=== PATIENT | male | born 1955 | race Asian ===

== ENCOUNTER 2020-11-01 09:42 | Inpatient (IN) | payer OTHER, SELFPAY ==
[~2020-11-01] VITALS: Ht 170.2 cm; Wt 72.6 kg
[2020-11-01 09:46] VITALS: BP 139/62
[2020-11-01] MEDS ORDERED: cefTRIAXone 1,000 MG in DEXT 5% MINI-BAG PLUS 50 ML IV ONE (10:00)
[2020-11-01] MEDS ORDERED: NACL 0.9% 1,000 ML IV SCH (10:00)
--- NOTE | 2020-11-01 10:00 | NUR ---
PT W/C ASSISTED TO BED 4.
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
--- NOTE | 2020-11-01 10:32 | NUR ---
MD LOPEZ AT BEDSIDE EVALUATING PT.
[2020-11-01 10:40] LABS: BASOPHILS % (AUTO) 0.5 % (0.0-2.0); EOSINOPHILS # (AUTO) 0.1 K/uL (0-0.4); HEMATOCRIT 37.2 % (36-52); HEMOGLOBIN 12.2 g/dL (12.0-18.0); LYMPHOCYTES # (AUTO) 1.6 K/uL (2.0-11.5); LYMPHOCYTES % (AUTO) 29.3 % (20.5-51.1); MEAN CORPUSCULAR HEMOGLOBIN 30 pg (27-31); MEAN CORPUSCULAR HGB CONC 33 g/dL (33-37); MEAN CORPUSCULAR VOLUME 92.1 fL (80-94); MONOCYTES # (AUTO) 0.5 K/uL (0.8-1.0); MONOCYTES % (AUTO) 9.2 % (1.7-9.3); NEUTROPHILS # (AUTO) 3.3 K/uL (1.8-7.7); PLATELET COUNT (AUTO) 209 K/uL (140-450); RED BLOOD CELL COUNT(AUTO) 4.04 MIL/uL (4.20-6.10); RED CELL DISTRIBUTION WIDTH 13.9 % (11.6-13.7); WHITE BLOOD COUNT (AUTO) 5.6 K/uL (4.8-10.8)
--- NOTE | 2020-11-01 10:40 | NUR ---
RAD AT BEDSIDE
[2020-11-01 10:54] LABS: ALBUMIN 3.6 g/dL (3.4-5.0); ANION GAP 10.6 (8-16); CARBON DIOXIDE 28.4 mmol/L (21-32); CREATININE 0.9 mg/dL (0.6-1.3); TOTAL BILIRUBIN 0.8 mg/dL (0.0-1.0)
--- NOTE | 2020-11-01 11:13 | NUR ---
FLACA AND INFLUENZA SAMPLES COLLECTED AND WALKED OVER TO LAB
[2020-11-01] MEDS ORDERED: cefTRIAXone 1,000 MG VIAL ONE (11:26)
--- NOTE | 2020-11-01 11:50 | NUR ---
PATIENT STRAIGHT CATH FOR URINE COLLECTION.
--- NOTE | 2020-11-01 12:00 | NUR ---
PATIENT RESTING IN BED, VSS, RR EVEN AND UNLABORED, SPOUSE AT BEDSIDE.
[2020-11-01 12:12] LABS: APPEARANCE,URINE CLEAR (CLEAR); BILIRUBIN,URINE NEGATIVE (NEGATIVE); BLOOD, URINE NEGATIVE (NEGATIVE); COLOR,URINE YELLOW (YELLOW); LEUKOCYTE ESTERASE ,URINE NEGATIVE (NEGATIVE); NITRITE, URINE NEGATIVE (NEGATIVE); UGLUCOSE NEGATIVE (NEGATIVE)
[2020-11-01] MEDS ORDERED: GABA300C PO (12:33)
[2020-11-01] MEDS ORDERED: METF-988 PO (12:33)
[2020-11-01] MEDS ORDERED: ASPI1CPM8 PO (12:33)
[2020-11-01] MEDS ORDERED: SIMV20TA1 PO (12:33)
[2020-11-01] MEDS ORDERED: LOSA100T1 PO (12:33)
[2020-11-01] MEDS ORDERED: TAMS0.4C96 PO (12:33)
[2020-11-01] MEDS ORDERED: ASPI-1822 PO (12:33)
[2020-11-01] MEDS ORDERED: MIRA50TE PO (12:33)
[2020-11-01] MEDS ORDERED: PRON INH (12:33)
[2020-11-01] MEDS ORDERED: FLUO40CA6 PO (12:33)
[2020-11-01] MEDS ORDERED: ALPR0.252 PO (12:33)
--- NOTE | 2020-11-01 12:38 | NUR ---
ACCUCHECK 83, PATIENT GIVEN SNACK.
--- NOTE | 2020-11-01 13:20 | NUR ---
PATIENT IN RESTING IN BED, RR EVEN AND UNLABORED, AT BEDSIDE.
[2020-11-01] MEDS ORDERED: ACETAMINOPHEN 325 MG TAB PO PRN (13:40)
[2020-11-01] MEDS ORDERED: POTASSIUM CHLORIDE 10 MEQ TABER PO PRN (13:40)
[2020-11-01] MEDS ORDERED: HYDROcodone/APAP 7.5/325 MG 1 TAB PO PRN (13:40)
[2020-11-01] MEDS ORDERED: ONDANSETRON 4 MG/2 ML VIAL IM/IVP PRN (13:40)
[2020-11-01] MEDS ORDERED: guaiFENesin DM 200/20 MG-10 ML 10 ML UDC PO PRN (13:40)
[2020-11-01 14:02] LABS: PROTHROMBIN TIME 9.9 secs (10.8-13.4)
[2020-11-01] MEDS: NACL 0.9% 1,000 ML IV SCH ×2 (14:09→23:40)
--- NOTE | 2020-11-01 14:09 | NUR ---
PATIENT REPOSITIONED FOR COMFORT, STARTED ON NS @100ML/HR.
[2020-11-01 14:16] LABS: FREE T4 (FREE THYROXINE) 0.94 ng/dL (0.76-1.46); PHOSPHORUS 2.7 mg/dL (2.5-4.9); THYROID STIMULATING HORMONE 2.16 uIU/mL (0.34-3.74)
--- NOTE | 2020-11-01 15:05 | NUR ---
NO LONGER AT BEDSIDE, STATES SHE IS GOING TO GO EAT.
--- NOTE | 2020-11-01 15:45 | NUR ---
PATIENT DEPENDANT CHANGED, PT CLEAN AND DRY.
--- NOTE | 2020-11-01 16:55 | NUR ---
PT PULLED OUT IV, PT CLEANED AND LINEN CHANGED. RETURNED TO BEDSIDE.
--- NOTE | 2020-11-01 17:37 | NUR ---
PATIENT RESTING IN BED, RR EVEN AND UNLABORED. AT BEDSIDE.
--- NOTE | 2020-11-01 19:00 | NUR ---
PTS AT BEDSIDE. DINNER TRAY PROVIDED. PER , PT NEEDS ASSISTANCE WITH FEEDING AND IS REQUESTING SOFT DIET. WILL CONTACT DR HILTON FOR DIET CHANGE
--- NOTE | 2020-11-01 19:15 | NUR ---
RECEIVED REPORT FROM GOPI MAHONEY. TRANSFER OF CARE ATY THIS TIME
--- NOTE | 2020-11-01 20:00 | NUR ---
Patient will be admitted to care of DR. HILTON. Admited to [facility]. Will go to room 123A. Belongings list completed. Report to ROGER NGUYỄN.
[2020-11-01] MEDS: DOCUSATE SODIUM 100 MG GELCAP PO PRN (21:01)
[2020-11-01] MEDS: ZOLPIDEM 5 MG TAB PO PRN (21:01)
[2020-11-01 21:03] VITALS: BP 140/75
--- NOTE | 2020-11-01 21:05 | NUR ---
THIS IS AN ADMISSION OF A 65 YEAR OLD MALE PATIENT UNDER THE CARE OF DOCTOR MATT HILTON MD. HAS HISTORY OF CVA SUBSEQUENT RIGHT SIDE WEAKNESS. PATIENT ALSO HAS HYPERLIPIDEMIA, GERD, ANXIETY, DEPRESSION, BENIGN PROSTATIC HYPERTROPHY, DIABETES MELLITUS, HYPERTENSION AND NEUROPATHY. THE PATIENT HAS BEEN ADMITTED FOR PNEUMONIA AND WEAKNESS. ROGER TOLEDO RN Addendum: 11/01/20 at 2206 by Agency GOPI NGUYỄN FATUMA HILTON, ALEXEY HILTON
--- NOTE | 2020-11-01 22:06 | NUR ---
SPOUSE REQUEST FOR DIET ORDER DUE TO PATIENT SWALLOW DIFFICULTY. ROGER TOLEDO RN
[2020-11-02 01:04] VITALS: BP 123/68
[2020-11-02 04:49] VITALS: BP_SYST 141; BP_SYST 146; BP_DIAS 62; BP_DIAS 64
[2020-11-02 06:03] LABS: BASOPHILS % (AUTO) 0.5 % (0.0-2.0); EOSINOPHILS # (AUTO) 0.1 K/uL (0-0.4); EOSINOPHILS % (AUTO) 1.4 % (0.0-4.0); HEMATOCRIT 36.8 % (36-52); HEMOGLOBIN 12.1 g/dL (12.0-18.0); LYMPHOCYTES # (AUTO) 2.3 K/uL (2.0-11.5); LYMPHOCYTES % (AUTO) 36.9 % (20.5-51.1); MEAN CORPUSCULAR HEMOGLOBIN 30 pg (27-31); MEAN CORPUSCULAR HGB CONC 33 g/dL (33-37); MEAN CORPUSCULAR VOLUME 91.6 fL (80-94); MONOCYTES # (AUTO) 0.5 K/uL (0.8-1.0); MONOCYTES % (AUTO) 7.4 % (1.7-9.3); NEUTROPHILS # (AUTO) 3.3 K/uL (1.8-7.7); NEUTROPHILS % (AUTO) 53.8 % (42.2-75.2); PLATELET COUNT (AUTO) 196 K/uL (140-450); RED BLOOD CELL COUNT(AUTO) 4.01 MIL/uL (4.20-6.10); RED CELL DISTRIBUTION WIDTH 13.9 % (11.6-13.7); WHITE BLOOD COUNT (AUTO) 6.2 K/uL (4.8-10.8)
[2020-11-02 06:27] LABS: CARBON DIOXIDE 26.8 mmol/L (21-32); CREATININE 0.7 mg/dL (0.6-1.3); POTASSIUM 3.8 mmol/L (3.5-5.1)
--- NOTE | 2020-11-02 07:30 | NUR ---
HANDOFF WITH GOPI AMEZCUA. ROGER TOLEDO RN
--- NOTE | 2020-11-02 07:32 | NUR ---
RECEIVED PATIENT REPORT FROM LOCKS TENDER NURSE FOR CONTINUITY OF CARE. PT IS AOX1. RESPIRATIONS EVEN AND UNLABORED. ON ROOM AIR AND NO DISTRESS NOTED. SKIN IS WARM, DRY, AND INTACT. IV SITE ON RH 24 G. INTACT AND PATENT. FLACC 0. PLAN OF CARE DISCUSSED. SAFETY PRECAUTIONS IN PLACE. WILL CONTINUE TO MONITOR.
--- NOTE | 2020-11-02 07:48 | NUR ---
PATIENT HAS BEEN SCREENED AND CATEGORIZED HIGH NUTRITION RISK. PATIENT WILL BE SEEN WITHIN 1-2 DAYS OF ADMISSION. 11/02/20-11/03/[address]
[2020-11-02 08:00] VITALS: BP 144/69
[2020-11-02 08:07] LABS: T4 (THYROXINE) 8.2 ug/dL (4.5-12.0)
--- NOTE | 2020-11-02 08:54 | NUR ---
PT. WITH LOW CARLOS SCALE AT RISK, CONTINUE TO FOLLOW PRESSURE INJURY PREVENTION INTERVENTIONS. -TURN AND REPOSITION PATIENT Q 2H -ASSESS AND MONITOR SKIN CONDITION DURING POSITION CHANGE -OFFLOAD BILATERAL HEELS BY PLACING PILLOWS UNDER CALVES AT ALL TIMES, UNLESS OTHERWISE CONTRAINDICATED -PRESSURE REDISTRIBUTION BY PLACING PILLOWS AND OFFLOADING SACRALCOCCYX -KEEP SKIN CLEAN AND DRY AT ALL TIMES.
[2020-11-02] MEDS: PANTOPRAZOLE 40 MG TABEC PO SCH (09:01)
--- NOTE | 2020-11-02 09:30 | NUR ---
SPEECH THERAPIST AT BEDSIDE ASSESSING PATIENT'S ABILITY TO SWALLOW.
--- NOTE | 2020-11-02 09:45 | NUR ---
ALL SCHEDULED MEDS GIVEN. PT IS STABLE. NO DISTRESS NOTED. WILL CONTINUE TO MONITOR.
[2020-11-02] MEDS: NACL 0.9% 1,000 ML IV SCH ×2 (09:48→19:55)
--- NOTE | 2020-11-02 09:49 | NUR ---
PT WAS SEEN FOR DYSPHAGIA. PT WAS ABLE TO SAFELY SWALLOW MS DIET WITH THIN LIQUID WITHOUT S/S OF ASPIRATION. RECOMMENDATION MS DIET WITH THIN LIQUID
--- NOTE | 2020-11-02 10:30 | NUR ---
PATIENT'S AT BEDSIDE. ENDORSED UPDATES REGARDING PATIENT CONDITION.
[2020-11-02] MEDS ORDERED: ALPRAZolam 0.25 MG TAB PO PRN (12:20)
[2020-11-02] MEDS ORDERED: ALBUTEROL 0.083% 2.5 MG/3 ML NEBU INH PRN (12:20)
--- NOTE | 2020-11-02 12:30 | NUR ---
CHECKED ON PATIENT. PATIENT IS ASLEEP. NOTED CHEST RISE AND FALL. NO DISTRESS NOTED. WILL CONTINUE TO MONITOR.
[2020-11-02] MEDS ORDERED: DEXTROSE 50% 50 ML SYR IVP PRN (12:50)
--- NOTE | 2020-11-02 14:08 | NUR ---
11/02/20 RD INITIAL ASSESSMENT COMPLETED PLEASE REFER TO NUTRITION ASSESSMENT UNDER CARE ACTIVITY FOR ESTIMATED NUTRITIONAL NEEDS. 1. RECOMMEND CCHO MECHANICAL SOFT DIET TOLERATED 2. RECOMMEND GLUCERNA BID FOR ADDITIONAL PROTEIN 3. PROVIDE SENIOR ECONOMIST WITH MEALS 4. RD TO FOLLOW-UP 5-7 DAYS, LOW RISK JAZMIN BAIN, LAUREEN
--- NOTE | 2020-11-02 14:16 | NUR ---
CHECKED ON PATIENT. PATIENT IS ASLEEP. NOTED CHEST RISE AND FALL. NO DISTRESS NOTED. WILL CONTINUE TO MONITOR.
[2020-11-02 16:00] VITALS: BP 122/70
--- NOTE | 2020-11-02 16:20 | NUR ---
CHECKED ON PATIENT. PATIENT IS ASLEEP. NOTED CHEST RISE AND FALL. NO DISTRESS NOTED. WILL CONTINUE TO MONITOR.
[2020-11-02] MEDS: BLOOD GLUCOSE MONITORING 1 DEV DEV FS SCH ×2 (17:30→20:05)
--- NOTE | 2020-11-02 17:30 | NUR ---
BLOOD GLUCOSE CHECK WAS 108. NO INSULIN COVERAGE NEEDED.
--- NOTE | 2020-11-02 19:30 | NUR ---
ENDORSED TO CITY PLANNING AIDE NURSE FOR CONTINUITY OF CARE. PT IS STABLE.
[2020-11-02 20:00] VITALS: BP 116/68
[2020-11-02] MEDS: DIPYRIDAMOLE PO SCH (20:06)
[2020-11-02] MEDS: ASPIRIN PO SCH (20:06)
[2020-11-02] MEDS: ASPIRIN 81 MG TAB.CHEW PO SCH (20:14)
[2020-11-02] MEDS: SIMVASTATIN 20 MG TAB PO SCH (20:14)
[2020-11-02] MEDS: DOCUSATE SODIUM 100 MG GELCAP PO PRN (20:15)
--- NOTE | 2020-11-02 23:55 | NUR ---
BED BATH AND LINEN CHANGE WITH AARON LONGO. ROGER TOLEDO RN
--- NOTE | 2020-11-03 00:16 | NUR ---
PATIENT AGITATION, PULLING TUBING AND IV LINE. NEW IV LINE PLACED. WILL GIVE NEEDED MEDICATION FOR AGITATION. ROGER TOLEDO RN
--- NOTE | 2020-11-03 01:25 | NUR ---
PATIENT BITING IV SITE. INFILTRATED LEFT FOREARM SITE REPLACED WITH 22 GAUGE SITE. ROGER TOLEDO RN
[2020-11-03] MEDS: ZOLPIDEM 5 MG TAB PO PRN (01:30)
--- NOTE | 2020-11-03 02:12 | NUR ---
PATIENT AWAKE ATTEMPTING TO REMOVE GLOVE TO LEFT HAND PLACED BY PEDIATRIC ACUTE CARE UNIT NURSE. REPLACED FINGERS TO PATIENT GLOVE. ROGER TOLEDO RN
--- NOTE | 2020-11-03 03:06 | NUR ---
INCONTINENCE CARE WITH BRIEF CHANGE AND PERINEAL CARE. ROGER TOLEDO RN
--- NOTE | 2020-11-03 03:58 | NUR ---
PATIENT HAS OCCASIONAL NON PRODUCTIVE COUGHING THROUGHOUT THE SHIFT. CURRENTLY SLEEPING SINCE LAST EPISODE OF INCONTINENCE. LAB PRESENT TO START MORNING BLOOD DRAW. ROGER TOLEDO RN Addendum: 11/03/20 at 0400 by Agency 08 GOPI NGUYỄN Amended: Links added.
[2020-11-03 04:00] VITALS: BP 142/73
[2020-11-03] MEDS: NACL 0.9% 1,000 ML IV SCH ×2 (05:27→15:57)
[2020-11-03 05:46] LABS: CARBON DIOXIDE 26.4 mmol/L (21-32); CREATININE 0.6 mg/dL (0.6-1.3); POTASSIUM 3.4 mmol/L (3.5-5.1)
--- NOTE | 2020-11-03 06:13 | NUR ---
HEALTH AND WELLNESS SALES CONSULTANT PERINEAL CARE, PARTIAL BATH WITH PATIENT DIAPER CHANGE. CORPORATE LICENSED BROKER PROVIDED ORAL CARE. ROGER TOLEDO RN
[2020-11-03] MEDS: BLOOD GLUCOSE MONITORING 1 DEV DEV FS SCH ×4 (06:37→21:51)
--- NOTE | 2020-11-03 07:30 | NUR ---
HANDOFF WITH GOPI AMEZCUA. ROGER TOLEDO RN
--- NOTE | 2020-11-03 07:32 | NUR ---
RECEIVED PATIENT REPORT FROM APRN NURSE FOR CONTINUITY OF CARE. PT IS AOX1. RESPIRATIONS EVEN AND UNLABORED. ON ROOM AIR AND NO DISTRESS NOTED. SKIN IS WARM, DRY, AND INTACT. IV SITE ON LFA 22 G. INTACT AND PATENT. FLACC 0. PLAN OF CARE DISCUSSED. SAFETY PRECAUTIONS IN PLACE. WILL CONTINUE TO MONITOR.
[2020-11-03 07:38] LABS: BASOPHILS % (AUTO) 0.3 % (0.0-2.0); EOSINOPHILS % (AUTO) 0.5 % (0.0-4.0); HEMATOCRIT 35.8 % (36-52); LYMPHOCYTES # (AUTO) 2.1 K/uL (2.0-11.5); LYMPHOCYTES % (AUTO) 23.5 % (20.5-51.1); MEAN CORPUSCULAR HEMOGLOBIN 30 pg (27-31); MEAN CORPUSCULAR HGB CONC 33 g/dL (33-37); MONOCYTES # (AUTO) 0.7 K/uL (0.8-1.0); MONOCYTES % (AUTO) 8.1 % (1.7-9.3); NEUTROPHILS # (AUTO) 5.9 K/uL (1.8-7.7); NEUTROPHILS % (AUTO) 67.6 % (42.2-75.2); PLATELET COUNT (AUTO) 182 K/uL (140-450); RED BLOOD CELL COUNT(AUTO) 3.93 MIL/uL (4.20-6.10); RED CELL DISTRIBUTION WIDTH 13.6 % (11.6-13.7); WHITE BLOOD COUNT (AUTO) 8.7 K/uL (4.8-10.8)
[2020-11-03 08:00] VITALS: BP 142/67
[2020-11-03] MEDS ORDERED: MIRABEGRON 50 MG PO SCH (09:00)
[2020-11-03] MEDS: DIPYRIDAMOLE PO SCH ×2 (09:47→21:53)
[2020-11-03] MEDS: ASPIRIN PO SCH ×2 (09:47→21:53)
[2020-11-03] MEDS: metFORMIN 500 MG TAB PO SCH (09:48)
[2020-11-03] MEDS: PANTOPRAZOLE 40 MG TABEC PO SCH (09:48)
[2020-11-03] MEDS: GABAPENTIN 300 MG CAP PO SCH (09:48)
[2020-11-03] MEDS: LOSARTAN 25 MG TAB PO SCH (09:49)
[2020-11-03] MEDS: TAMSULOSIN 0.4 MG CAP PO SCH (09:49)
[2020-11-03] MEDS: FLUoxetine 20 MG CAP PO SCH (09:49)
[2020-11-03] MEDS: PATIENTS OWN TABLET PO SCH (09:50)
--- NOTE | 2020-11-03 09:50 | NUR ---
ALL SCHEDULE MEDS GIVEN. PT IS STABLE. NO DISTRESS NOTED. WILL CONTINUE TO MONITOR.
--- NOTE | 2020-11-03 12:12 | NUR ---
BLOOD GLUCOSE CHECK WAS 98. NO INSULIN COVERAGE NEEDED.
--- NOTE | 2020-11-03 14:55 | NUR ---
CHECKED ON PATIENT. PATIENT IS STABLE. NO DISTRESS NOTED. FLACC 0. WILL CONTINUE TO MONITOR.
[2020-11-03 16:00] VITALS: BP 118/43
[2020-11-03] MEDS: INSULIN LISPRO SLIDING SCALE 100 UNITS/ML VIAL SUBQ PRN (17:45)
--- NOTE | 2020-11-03 17:45 | NUR ---
BLOOD GLUCOSE CHECK WAS 162. INSULIN COVERAGE NEEDED. PATIENT REFUSED INSULIN SQ.
--- NOTE | 2020-11-03 19:30 | NUR ---
ENDORSED TO STAIN DIPPER NURSE FOR CONTINUITY OF CARE. PT IS STABLE.
--- NOTE | 2020-11-03 20:30 | NUR ---
CLEANSED PATIENT, DIAPER CHANGED. MADE COMFORTABLE IN BED WITH PILLOWS.
[2020-11-03] MEDS: SIMVASTATIN 20 MG TAB PO SCH (21:52)
[2020-11-03] MEDS: ASPIRIN 81 MG TAB.CHEW PO SCH (21:52)
--- NOTE | 2020-11-03 21:53 | NUR ---
BS CHECKED, 98. NO COVERAGE. SNACK FOR THE NIGHT GIVEN, ATE 100%. SCHEDULED MEDICATIONS GIVEN, TOLERATED WELL.
[2020-11-04] VITALS: BP 149/72
--- NOTE | 2020-11-04 | NUR ---
SLEEPING COMFORTABLY IN BED.
[2020-11-04] MEDS: NACL 0.9% 1,000 ML IV SCH ×3 (01:40→21:40)
--- NOTE | 2020-11-04 02:00 | NUR ---
CONFUSED, PULLED OUT IV LINE.
--- NOTE | 2020-11-04 04:30 | NUR ---
HAD BM, PASTY BM, SMALL AMOUNT. CLEANSED AND DIAPER CHANGED. MADE COMFORTABLE IN BED WITH PILLOWS.
--- NOTE | 2020-11-04 05:00 | NUR ---
NEW IV LINE INSERTED BY GOPI ARGUELLES AT THE LEFT WRIST G22.
[2020-11-04 05:12] LABS: BASOPHILS % (AUTO) 0.4 % (0.0-2.0); EOSINOPHILS # (AUTO) 0.1 K/uL (0-0.4); EOSINOPHILS % (AUTO) 0.9 % (0.0-4.0); HEMATOCRIT 37.4 % (36-52); HEMOGLOBIN 12.2 g/dL (12.0-18.0); LYMPHOCYTES % (AUTO) 26.6 % (20.5-51.1); MEAN CORPUSCULAR HEMOGLOBIN 30 pg (27-31); MEAN CORPUSCULAR HGB CONC 33 g/dL (33-37); MEAN CORPUSCULAR VOLUME 91.9 fL (80-94); MONOCYTES # (AUTO) 0.8 K/uL (0.8-1.0); MONOCYTES % (AUTO) 10.2 % (1.7-9.3); NEUTROPHILS # (AUTO) 4.6 K/uL (1.8-7.7); NEUTROPHILS % (AUTO) 61.9 % (42.2-75.2); PLATELET COUNT (AUTO) 203 K/uL (140-450); RED BLOOD CELL COUNT(AUTO) 4.06 MIL/uL (4.20-6.10); RED CELL DISTRIBUTION WIDTH 13.6 % (11.6-13.7); WHITE BLOOD COUNT (AUTO) 7.4 K/uL (4.8-10.8)
--- NOTE | 2020-11-04 06:00 | NUR ---
CONDITION REMAIN STABLE. SAFETY MAINTAINED DURING THE SHIFT.
[2020-11-04 06:14] LABS: ANION GAP 11.9 (8-16); CARBON DIOXIDE 26.8 mmol/L (21-32); CREATININE 0.7 mg/dL (0.6-1.3); POTASSIUM 3.7 mmol/L (3.5-5.1)
--- NOTE | 2020-11-04 07:30 | NUR ---
ENDORSED TO AM SHIFT NURSE FOR CONTINUITY OF CARE.
--- NOTE | 2020-11-04 07:32 | NUR ---
RECEIVED PATIENT REPORT FROM SHEET ROCK HANGER NURSE FOR CONTINUITY OF CARE. PT IS AOX1. RESPIRATIONS EVEN AND UNLABORED. ON ROOM AIR AND NO DISTRESS NOTED. SKIN IS WARM, DRY, AND INTACT. IV SITE ON L WRIST 22 G. INTACT AND PATENT. FLACC 0. PLAN OF CARE DISCUSSED. SAFETY PRECAUTIONS IN PLACE. WILL CONTINUE TO MONITOR.
[2020-11-04] MEDS: BLOOD GLUCOSE MONITORING 1 DEV DEV FS SCH ×4 (07:57→21:44)
[2020-11-04 08:00] VITALS: BP 134/80
--- NOTE | 2020-11-04 09:45 | NUR ---
ALL SCHEDULED MEDS GIVEN. PT IS STABLE. NO DISTRESS NOTED. WILL CONTINUE TO MONITOR.
[2020-11-04] MEDS: ASPIRIN PO SCH ×2 (09:48→21:46)
[2020-11-04] MEDS: DIPYRIDAMOLE PO SCH ×2 (09:48→21:46)
[2020-11-04] MEDS: PATIENTS OWN TABLET PO SCH (09:49)
[2020-11-04] MEDS: TAMSULOSIN 0.4 MG CAP PO SCH (09:49)
[2020-11-04] MEDS: LOSARTAN 25 MG TAB PO SCH (09:49)
[2020-11-04] MEDS: GABAPENTIN 300 MG CAP PO SCH (09:49)
[2020-11-04] MEDS: metFORMIN 500 MG TAB PO SCH (09:49)
[2020-11-04] MEDS: PANTOPRAZOLE 40 MG TABEC PO SCH (09:50)
[2020-11-04] MEDS: FLUoxetine 20 MG CAP PO SCH (09:50)
[2020-11-04] MEDS ORDERED: CEPH250C16 PO (10:51)
--- NOTE | 2020-11-04 11:40 | NUR ---
CHANGE PATIENT'S SHEETS. KEPT PT CLEAN AND DRY. VISITOR AT BEDSIDE. WILL CONTINUE TO MONITOR.
--- NOTE | 2020-11-04 11:48 | NUR ---
SPOKE WITH SARAH FROM [facility], STATED THEY ARE UNABLE TO TAKE OR ADMIT PT TODAY, MAYBE TOMORROW. SARAH ALSO STATED SHE WILL FF UP WITH THEIR EQUALIZER OPERATOR TOMORROW.
--- NOTE | 2020-11-04 14:30 | NUR ---
CHECKED ON PATIENT. PATIENT IS ASLEEP. NOTED CHEST RISE AND FALL. NO DISTRESS NOTED. WILL CONTINUE TO MONITOR.
[2020-11-04 16:00] VITALS: BP 132/66
--- NOTE | 2020-11-04 18:30 | NUR ---
REINSERTED NEW IV 20 G LAC. SALINE FLUSH, INTACT AND PATENT.
--- NOTE | 2020-11-04 19:20 | NUR ---
RECD. RESTING IN BED, AWAKE, A/OX1, SLURRED SPEECH. RESPIRATION EVEN AND UNLABORED. IV OF NS INFUSING AT 100 ML/HR, LEFT AC G20. SAFETY MEASURES ENFORCED. BED IN THE LOWEST POSITION, BED ON ALARM. MEDICATIONS FOR THE NIGHT DISCUSSED WITH PATIENT. NEEDS REINFORCEMENT. NO APPEARANCE OF PAIN NOTED, FLACC -0.
--- NOTE | 2020-11-04 19:20 | NUR ---
ENDORSED TO WEB APPLICATION TESTER NURSE FOR CONTINUITY OF CARE. PT IS STABLE.
--- NOTE | 2020-11-04 21:00 | NUR ---
CLEANSED PATIENT. CHANGED GOWN. BEDDINGS CHANGED. MADE COMFORTABLE IN BED WITH PILLOWS.
[2020-11-04] MEDS: ASPIRIN 81 MG TAB.CHEW PO SCH (21:45)
[2020-11-04] MEDS: SIMVASTATIN 20 MG TAB PO SCH (21:45)
--- NOTE | 2020-11-04 21:46 | NUR ---
SCHEDULED MEDICATIONS GIVEN WITH APPLE SAUCE, TOLERATED WELL.
--- NOTE | 2020-11-04 22:00 | NUR ---
CLEANSED WITH WIPES, DIAPER CHANGED. MADE COMFORTABLE IN BED.
[2020-11-05] VITALS: BP 93/53
--- NOTE | 2020-11-05 | NUR ---
SLEEPING COMFORTABLY IN BED. RESPIRATION EVEN AND UNLABORED.
--- NOTE | 2020-11-05 03:00 | NUR ---
HAD BM, CLEANSED AND MADE COMFORTABLE IN BED.
--- NOTE | 2020-11-05 05:30 | NUR ---
CHANGED DIAPER, REPOSITIONED WITH PILLOWS FOR COMFORT.
[2020-11-05 06:08] LABS: BASOPHILS % (AUTO) 0.5 % (0.0-2.0); EOSINOPHILS # (AUTO) 0.1 K/uL (0-0.4); EOSINOPHILS % (AUTO) 1.3 % (0.0-4.0); HEMATOCRIT 35.8 % (36-52); LYMPHOCYTES # (AUTO) 1.6 K/uL (2.0-11.5); LYMPHOCYTES % (AUTO) 26.6 % (20.5-51.1); MEAN CORPUSCULAR HEMOGLOBIN 31 pg (27-31); MEAN CORPUSCULAR HGB CONC 34 g/dL (33-37); MEAN CORPUSCULAR VOLUME 90.9 fL (80-94); MONOCYTES # (AUTO) 0.6 K/uL (0.8-1.0); MONOCYTES % (AUTO) 9.3 % (1.7-9.3); NEUTROPHILS # (AUTO) 3.8 K/uL (1.8-7.7); NEUTROPHILS % (AUTO) 62.3 % (42.2-75.2); PLATELET COUNT (AUTO) 203 K/uL (140-450); RED BLOOD CELL COUNT(AUTO) 3.94 MIL/uL (4.20-6.10); RED CELL DISTRIBUTION WIDTH 13.8 % (11.6-13.7); WHITE BLOOD COUNT (AUTO) 6.1 K/uL (4.8-10.8)
[2020-11-05] MEDS: NACL 0.9% 1,000 ML IV SCH ×2 (06:29→07:40)
[2020-11-05] MEDS: BLOOD GLUCOSE MONITORING 1 DEV DEV FS SCH ×3 (06:50→16:30)
--- NOTE | 2020-11-05 07:20 | NUR ---
CONDITION REMAIN STABLE. ENDORSED TO AM NURSE FOR CONTINUITY OF CARE.
--- NOTE | 2020-11-05 07:30 | NUR ---
RECEIVED REPORT FROM BUSINESS PRACTICES SUPERVISOR NURSE FOR CONTINUITY OF CARE. PATIENT AWAKE AND ALERT. BREATHING EVEN AND UNLABORED. ON ROOM AIR AND NO DISTRESS NOTED. PATIENT DENIES PAIN AT THIS TIME. SKIN IS INTACT, WARM, DRY TO TOUCH. PATIENT HAS 20G LAC INFUSING FLUIDS WELL. PLAN OF CARE DISCUSSED. ALL SAFETY MEASURES IN PLACE. CALL LIGHT WITHIN REACH. WILL CONTINUE TO MONITOR.
--- NOTE | 2020-11-05 08:10 | NUR ---
Pt awake and alert on RA, SPO2 95%, Bilat. rales. No signs of resp. distress noted at this time.
--- NOTE | 2020-11-05 09:50 | NUR ---
REINSERTED NEW IV 24 G RH. SALINE FLUSHED. INTACT AND PATENT.
[2020-11-05] MEDS: TAMSULOSIN 0.4 MG CAP PO SCH (10:00)
[2020-11-05] MEDS: ASPIRIN PO SCH (10:00)
[2020-11-05] MEDS: DIPYRIDAMOLE PO SCH (10:00)
[2020-11-05] MEDS: GABAPENTIN 300 MG CAP PO SCH (10:00)
[2020-11-05] MEDS: LOSARTAN 25 MG TAB PO SCH (10:00)
[2020-11-05] MEDS: metFORMIN 500 MG TAB PO SCH (10:00)
[2020-11-05] MEDS: FLUoxetine 20 MG CAP PO SCH (10:00)
[2020-11-05] MEDS: PATIENTS OWN TABLET PO SCH (10:00)
[2020-11-05] MEDS: PANTOPRAZOLE 40 MG TABEC PO SCH (10:00)
--- NOTE | 2020-11-05 10:00 | NUR ---
ALL SCHEDULED MEDS GIVEN. PT IS STABLE. NO DISTRESS NOTED. WILL CONTINUE TO MONITOR.
--- NOTE | 2020-11-05 11:05 | NUR ---
DC PLANNING: CM MET WITH THE PATIENT AND HIS TO CONFIRM DC PLAN. STATES SHE WANTS THE [place] [facility] CM ENDORSED THAT BED AVAILABILITY WILL BE CHECKED. PATIENT NON-VERBAL AND SITTING UP IN UPRIGHT CHAIR. CM FAXED INFORMATION TO [facility] AND SPOKE WITH SARAH TO ENDORSE PLAN TO DC TODAY. ALSO ASKED [facility] TO ASSIST WITH TRANSPORT. CM WILL FOLLOW NEEDED. Addendum: 11/05/20 at 1422 by Abby Rivas CM DC PLANNING: [facility] ROOM 1C, TRANSPORT THROUGH [email or web address] [facility], [facility]. PATIENT AND HIS NOTIFIED OF TRANSPORT, ALSO PATIENTS GOPI AMEZCUA. DR. HILTON TO FOLLOW, PATIENTS WILL TAKE HIS CLOTHES AND WC TO [facility] AT THE TIME OF TRANSPORT. CM WILL FOLLOW FOR NEEDS.
--- NOTE | 2020-11-05 12:15 | NUR ---
BLOOD GLUCOSE CHECK WAS 181. PT REFUSED INSULIN COVERAGE.
[2020-11-05] MEDS: INSULIN LISPRO SLIDING SCALE 100 UNITS/ML VIAL SUBQ PRN (12:30)
--- NOTE | 2020-11-05 14:10 | NUR ---
CHECKED ON PATIENT. PATIENT IS ASLEEP. NOTED CHEST RISE AND FALL. NO DISTRESS. WILL CONTINUE TO MONITOR
[2020-11-05 16:49] VITALS: BP 117/76
--- NOTE | 2020-11-05 17:00 | NUR ---
WAS UNABLE TO GIVE REPORT TO RN. WILL CONTACT FACILITY AGAIN.
--- NOTE | 2020-11-05 17:10 | NUR ---
PT DISCHARGED OFF THE UNIT. [facility] WILL BE TRANSFERRING PT TO [facility] IN ROOM 1C UNDER DR. HILTON'S CARE. PT WAS STABLE PRIOR TO DISCHARGE.
[2020-11-05 17:50] LABS: ANION GAP 15.3 (8-16); CARBON DIOXIDE 26.1 mmol/L (21-32); CREATININE 0.8 mg/dL (0.6-1.3); POTASSIUM 3.4 mmol/L (3.5-5.1)
--- NOTE | 2020-11-05 18:37 | NUR ---
UNABLE TO GIVE REPORT TO RN IN [facility]. CONTACTED FACILITY AND RN WAS NOT AVAILABLE AT THE MOMENT.
--- NOTE | 2020-11-05 18:54 | NUR ---
REPORT WAS NOT GIVEN. WAS NOT ABLE TO GET A HOLD OF RN AT [facility] IN [place]. CONTACT INFORMATION WAS GIVEN TO POLE FRAMER. RN DID NOT RETURN CALL. REPORTED TO CHARGE NURSE REGARDING THIS SITUATION.
== END 2020-11-05 17:10 | DRG 177 ==
LOC: MED 09:42 → MTU 13:24
PROVIDERS: ADMIT Family Medicine; ATTEND Family Medicine
DX: J69.0 Pneumonitis due to inhalation of food and vomit (principal); G93.41 Metabolic encephalopathy; I69.351 Hemiplegia and hemiparesis following cerebral infarction affecting right dominant side; E11.40 Type 2 diabetes mellitus with diabetic neuropathy, unspecified; E78.5 Hyperlipidemia, unspecified; E86.0 Dehydration; I10 Essential (primary) hypertension; N40.0 Benign prostatic hyperplasia without lower urinary tract symptoms; I25.10 Atherosclerotic heart disease of native coronary artery without angina pectoris; Z20.822 Contact with and (suspected) exposure to COVID-19; F41.9 Anxiety disorder, unspecified; Z79.01 Long term (current) use of anticoagulants; Z79.82 Long term (current) use of aspirin; Z79.899 Other long term (current) drug therapy
CPT/HCPCS: 36415; 70450; 71045; 80048; 80053; 81003; 82150; 82550; 82948; 83036; 83605; 83690; 83735; 83880; 84100; 84436; 84439; 84443; 84479; 84484; 85025; 85610; 85730; 87040; 87086; 87804; 92610; 92700; 93005; 96365; 97110; 97112; 97163-GP; 97530; 99285; J0696; J1644; J1815; J7060

== ENCOUNTER 2020-12-15 08:51 | Emergency (ER) | payer OTHER, SELFPAY ==
[~2020-12-15] VITALS: Ht 170.2 cm; Wt 66.2 kg
[~2020-12-15 08:51] MED LIST: ALPR0.252 PO; ASPI-1822 PO; ASPI1CPM8 PO; CEPH250C16 PO; FLUO40CA6 PO; GABA300C PO; LOSA100T1 PO; METF-988 PO; MIRA50TE PO; PRON INH; SIMV20TA1 PO; TAMS0.4C96 PO
[2020-12-15 08:54] VITALS: BP 149/84
--- NOTE | 2020-12-15 08:54 | NUR ---
BIBA TO BED 03
--- NOTE | 2020-12-15 09:00 | NUR ---
Dr. Jacques is evaluating patient at bedside. Addendum: 12/15/20 at 0912 by JORDAN Estonian putty mixer and applier #[id number] on line for ERMD evaluation
--- NOTE | 2020-12-15 09:07 | NUR ---
65 y/o M [place] from [facility] for ER evaluation s/p patient presenting laying under neighboring bed. Per EMS, patient's bed is "1-2 feet off the ground with a foam pad" and patient presented with his head under a neighboring bed. Staff states unknown how patient presented there. Patient without any trauma noted to head/neck/back. Per EMS, staff states patient's presentation upon ER arrival is his baseline. A&Ox0 with hx CVA with R sided deficits. Pt with diaper and R arm contraction. Per staff, last seen normal 0820; patient eating meal at 0800. Bed locked in lowest position, side rails x 2 for pt safety. Unable to obtain throughout assessment d/t patient presentation. PMH: HTN, dementia NKA: Meds/Sx: See chart
--- NOTE | 2020-12-15 11:32 | NUR ---
Patient attempting to step out of bed. Reoriented and repositioned up in bed. classroom monitor remains in place; VSS respirations even/unlabored. Bed locked in lowest position, side rails x 2 for pt safety.
--- NOTE | 2020-12-15 13:57 | NUR ---
Spoke with Radha (Daughter) who acknowledged patient's transportation ETA back to [facility] 1730. States patient is diabetic and will have outbursts. Advised patient VSS and has been cooperative. Patient requesting to personally poultry picking machine tender patient by POV and take him home; advised of fall risk and liability reasons to hold for transportation. Charge nurse spoke with patient and made aware.
--- NOTE | 2020-12-15 14:05 | NUR ---
passport application examiner states in house cra and case management approved patient being picked up private vehicle by family. Radha contacted and made aware; states ETA to here 30 minutes. Radha requested to start feeding his lunch at this time.
--- NOTE | 2020-12-15 14:34 | NUR ---
Lunch mealtray at bedside
--- NOTE | 2020-12-15 14:50 | NUR ---
Patient at bedside eating with left hand with observation. Patient tolerating mechanical soft diet well. All pt needs met.
--- NOTE | 2020-12-15 15:10 | NUR ---
Patient completed 90% of meal tray. environmental monitoring specialist remains in place. All needs met.
--- NOTE | 2020-12-15 16:10 | NUR ---
Patient presents a little restless in bed. Diaper and meter/relay technician remains in place. VSS; respirations even/unlabored.
--- NOTE | 2020-12-15 17:20 | NUR ---
Patient resting laying in left side with both eyes open. Reoriented to place. monitoring and evaluation advisor in place. Bed locked in lowest position, side rails x 1, call light in reach.
--- NOTE | 2020-12-15 19:21 | NUR ---
Report and transfer of care endorsed to GOPI Hinds.
[2020-12-15 20:29] VITALS: BP 131/51
--- NOTE | 2020-12-15 20:29 | NUR ---
Patient discharged with v/s stable. Written and verbal after care instructions given and explained. Patient verbalized understanding. Ambulance Transport with to [facility]. All questions addressed prior to discharge. Advised to follow up with PMD.
== END 2020-12-15 20:29 ==
LOC: MED 08:51
DX: S09.90XA Unspecified injury of head, initial encounter (principal); E78.5 Hyperlipidemia, unspecified; I10 Essential (primary) hypertension; F32.9 Major depressive disorder, single episode, unspecified; Z86.73 Personal history of transient ischemic attack (TIA), and cerebral infarction without residual deficits; Z79.84 Long term (current) use of oral hypoglycemic drugs; Z79.899 Other long term (current) drug therapy; Z79.82 Long term (current) use of aspirin; W19.XXXA Unspecified fall, initial encounter; Y93.89 Activity, other specified; Y92.89 Other specified places as the place of occurrence of the external cause; Y99.8 Other external cause status
CPT/HCPCS: 70450; 99285

== ENCOUNTER 2021-01-17 16:32 | Inpatient (IN) | payer OTHER, SELFPAY ==
[~2021-01-17] VITALS: Ht 170.2 cm; Wt 68.5 kg
[~2021-01-17 16:32] MED LIST changes: +METF-1243 PO; -METF-988 PO
--- NOTE | 2021-01-17 16:32 | NUR ---
PT BIBA TAKEN TO ER BED 1.
[2021-01-17] MEDS ORDERED: NACL 0.9% 2,000 ML IV ONE (16:40)
[2021-01-17] MEDS ORDERED: ALBUTEROL SULFATE/IPRATROPIU 3 ML SOL IH ONE ×2 (16:40→17:58)
[2021-01-17] MEDS ORDERED: AZITHROMYCIN 500 MG in DEXTROSE 5% 250 ML IV ONE (16:40)
[2021-01-17 16:44] VITALS: BP 115/67
[2021-01-17] MEDS ORDERED: cefTRIAXone 1,000 MG VIAL ONE (16:45)
[2021-01-17 16:49] VITALS: BP 115/67
--- NOTE | 2021-01-17 16:58 | NUR ---
RT AT PT BEDSIDE SUCTIONED PT, YELLOW MUCOUS FROM NARES. MADE AWARE.
--- NOTE | 2021-01-17 16:58 | NUR ---
IV ESTABLISHED TO RIGHT UPPER ARM 20G, GOOD BLOOD RETURN, COLLECTED LABS GAVE TO TRACY LEIGH TECH AT PT BEDSIDE.
--- NOTE | 2021-01-17 17:02 | NUR ---
65 Y/O MALE [place] [facility] [place]. PER EMS PT SPO2 ON RA 82% ON RA, PLACED ON 6L NC AT FACILITY PT SPO2 86%. ON EMS ARRIVAL PT PLACED ON 15L NRB WITH SPO2 90%. LUNG SOUNDS RHONCHI ON UPPER BASES AND ABSENT ON LOWER BASES. BS [address] SHERWOOD, RN, EMT, AND RT AT PT BEDSIDE. RT PLACED PT ON BIPAP PER MD ORDER SPO2 99%. PT IS A&OX0, GCS 6. PT IS DNR, POLST IN PT CHART. PMH: CVA, DM, HLD, SEE PT CHART FOR EXTENSIVE NKA
[2021-01-17] MEDS ORDERED: AZITHROMYCIN 500 MG INJ VIAL IV ONE (17:11)
--- NOTE | 2021-01-17 17:15 | NUR ---
MANUFACTURING SR ENGINEER AT PT BEDSIDE.
--- NOTE | 2021-01-17 17:18 | NUR ---
COLLECTED JACQUELINE BEDOYA, JACQUELINE MONTANO, RSV, AND INFL A&B WALKD TO LAB.
[2021-01-17 17:22] LABS: HEMOGLOBIN 14.1 g/dL (12.0-18.0); MEAN CORPUSCULAR HEMOGLOBIN 29 pg (27-31); MEAN CORPUSCULAR HGB CONC 32 g/dL (33-37); MEAN CORPUSCULAR VOLUME 91.1 fL (80-94); PLATELET COUNT (AUTO) 403 K/uL (140-450); RED BLOOD CELL COUNT(AUTO) 4.83 MIL/uL (4.20-6.10); WHITE BLOOD COUNT (AUTO) 22.6 K/uL (4.8-10.8)
[2021-01-17] MEDS ORDERED: ACETAMINOPHEN 650 MG SUPP RC ONE (17:35)
[2021-01-17 17:47] LABS: ANION GAP 14.8 (8-16); CARBON DIOXIDE 30.2 mmol/L (21-32); CREATININE 1.8 mg/dL (0.6-1.3); TOTAL BILIRUBIN 0.7 mg/dL (0.0-1.0)
--- NOTE | 2021-01-17 17:52 | NUR ---
PT REMOVING BIPAP, MADE AWARE.
[2021-01-17 18:03] LABS: BILIRUBIN,URINE NEGATIVE (NEGATIVE); BLOOD, URINE TRACE-I (NEGATIVE); COLOR,URINE YELLOW (YELLOW); LEUKOCYTE ESTERASE ,URINE TRACE (NEGATIVE); NITRITE, URINE NEGATIVE (NEGATIVE); PH,URINE 8.5 (5.0-9.0); UGLUCOSE 3+ (NEGATIVE)
[2021-01-17 18:05] LABS: LYMPHOCYTES % (MANUAL) 8 % (20-46); MONOCYTES % (MANUAL) 1 % (5-12)
[2021-01-17] MEDS ORDERED: INSULIN REGULAR, HUMAN 100 UNIT/ML VIAL SUBQ ONE (18:15)
[2021-01-17] MEDS ORDERED: NACL 0.9% 1,000 ML IV ONE (18:15)
[2021-01-17 18:18] LABS: APPEARANCE,URINE HAZY (CLEAR)
[2021-01-17 18:24] LABS: RSV NEGATIVE (NEGATIVE)
[2021-01-17 18:33] LABS: RBC,URINE 0-5 /HPF (0-5); WBC,URINE 80-100 /HPF (0-5)
--- NOTE | 2021-01-17 18:47 | NUR ---
PT RECTAL TEMP 102F, ERMD MADE AWARE.
[2021-01-17] MEDS ORDERED: PIPERACILLIN/TAZOBACTAM 3.375 GM in DEXTROSE 5% 50 ML IV SCH (18:55)
[2021-01-17] MEDS: NACL 0.9% 1,000 ML IV SCH (18:55)
[2021-01-17] MEDS ORDERED: OXYB10TA2 PO (19:10)
[2021-01-17] MEDS ORDERED: MELA5SGL PO (19:10)
[2021-01-17] MEDS ORDERED: CA C1TAB15 PO (19:10)
[2021-01-17] MEDS ORDERED: D50SYR IV (19:10)
[2021-01-17] MEDS ORDERED: DOCU-299 PO (19:10)
[2021-01-17] MEDS ORDERED: NUTR-583 PO (19:10)
[2021-01-17] MEDS ORDERED: ZINC50TA76 PO (19:10)
[2021-01-17] MEDS ORDERED: GLUC1VIA IM (19:10)
[2021-01-17] MEDS ORDERED: DEXT31GE2 PO (19:10)
[2021-01-17] MEDS ORDERED: MAGN400S60 PO (19:21)
[2021-01-17] MEDS ORDERED: NA P135N RC (19:21)
[2021-01-17] MEDS ORDERED: BISA-218 RC (19:21)
--- NOTE | 2021-01-17 19:22 | NUR ---
GAVE REPORT TO GOPI TARIQ. TRANSFER OF CARE AT THIS TIME.
[2021-01-17 20:12] VITALS: BP 117/73
--- NOTE | 2021-01-17 20:50 | NUR ---
ATTEMPTED TO CONTACT NURSE SUE X2. STATED SHE WILL CALL BACK FOR REPORT BECAUSE SHE IS PASSING OUT MEDS.
--- NOTE | 2021-01-17 20:59 | NUR ---
REPORT GIVEN TO SUE NGUYỄN AT THIS TIME. CLEARED TO TRANSPORT TO BED 127B
[2021-01-17] MEDS: BLOOD GLUCOSE MONITORING 1 DEV DEV FS SCH (21:00)
[2021-01-17] MEDS ORDERED: PIPERACILLIN/TAZOBACTAM 3.375 GM VIAL IV ONE (21:02)
[2021-01-17] MEDS ORDERED: DOCUSATE SODIUM 100 MG GELCAP PO PRN (21:30)
[2021-01-17] MEDS ORDERED: ALBUTEROL SULFATE/IPRATROPIU 3 ML SOL IH PRN (21:30)
[2021-01-17] MEDS ORDERED: ONDANSETRON 4 MG/2 ML VIAL IM/IVP PRN (21:30)
[2021-01-17] MEDS ORDERED: POTASSIUM CHLORIDE 10 MEQ TABER PO PRN (21:30)
[2021-01-17] MEDS ORDERED: ACETAMINOPHEN 325 MG TAB PO PRN (21:30)
[2021-01-17] MEDS ORDERED: DEXT 5% /NACL 0.9% 1,000 ML IV SCH (21:30)
[2021-01-17] MEDS ORDERED: HYDROcodone/APAP 7.5/325 MG 1 TAB PO PRN (21:30)
[2021-01-17] MEDS ORDERED: guaiFENesin DM 200/20 MG-10 ML 10 ML UDC PO PRN (21:30)
[2021-01-17] MEDS ORDERED: ZOLPIDEM 5 MG TAB PO PRN (21:30)
[2021-01-17 22:00] VITALS: BP 100/60
--- NOTE | 2021-01-17 22:00 | NUR ---
UPON ADMISSION PT IS RESTLESS AND COMBATIVE, ATTEMPTING TO REMOVE LINES, TUBING AND BIPAP. PATIENT IS APHASIC AND AOX1. RESPIRATION EVEN UNLABORED ON BIPAP. HEART RATE REGULAR, S1&S2 NOTED. BOWEL SOUNDS PRESENTS IN ALL QUADRANTS. ABDOMEN SOFT AND NON-TENDER. UPPER AND LOWER EXTREMITY WEAKNESS NOTED ON THE RIGHT SIDE. PATIENT HAS A HALEY DRAINING YELLOW URINE. VITALS WERE TAKEN. MRSA SCREEN DONE. ALL SAFETY MEASURES IN PLACE. BED IS AT LOW POSITION. CALL LIGHT WITHIN REACH. WILL CONTINUE TO MONITOR
[2021-01-17] MEDS: INSULIN LISPRO SLIDING SCALE 100 UNITS/ML VIAL SUBQ PRN (22:02)
--- NOTE | 2021-01-17 22:15 | NUR ---
SPOKE TO PATIENT DAUGHTER STARLA UPDATED HER WITH POC.
[2021-01-17 22:18] LABS: CHOL/HDL RATIO 2.8 (1-4.5); FREE T4 (FREE THYROXINE) 1.22 ng/dL (0.76-1.46); MAGNESIUM 2.8 mg/dL (1.8-2.4); PHOSPHORUS 3.7 mg/dL (2.5-4.9); THYROID STIMULATING HORMONE 0.86 uIU/mL (0.34-3.74)
[2021-01-17] MEDS ORDERED: LORazepam 2 MG/ML VIAL ONE (22:26)
--- NOTE | 2021-01-17 22:30 | NUR ---
PATIENT KEEP REMOVING HIS BIPAP AND PULLING HIS LINES, NOTIFIED MD. PER MD ADMINISTER ATIVAN 1MG. CHARGE NURSE PULLED OUT ATIVAN AND ADMINISTERED THE MEDICATION. WILL CONTINUE TO MONITOR.
[2021-01-17] MEDS: LORazepam 2 MG/ML VIAL IM/IVP PRN (22:44)
--- NOTE | 2021-01-17 22:45 | NUR ---
CALLED [facility] TO OBTAIN PAST MEDICAL HISTORY OF THE PATIENT. SPOKE WITH LEE NGUYỄN PROVIDED INFORMATION REGARDING PATIENT.
[2021-01-17 23:54] LABS: PROTHROMBIN TIME 11.3 secs (10.8-13.4)
[2021-01-18] VITALS: BP 100/58
[2021-01-18] MEDS ORDERED: PIPERACILLIN/TAZOBACTAM 3.375 GM in DEXTROSE 5% 50 ML IV SCH ×2
[2021-01-18] MEDS ORDERED: PIPERACILLIN/TAZOBACTAM 2.25 GM VIAL IV ONE ×2 (00:30→05:37)
--- NOTE | 2021-01-18 00:30 | NUR ---
SCHEDULED ZOSYN IS GIVEN PER ORDER. WILL CONTINUE TO MONITOR
[2021-01-18] MEDS: PIPER/TAZO 2.25GM/D5W PREMIX 50 ML IV SCH ×2 (00:37→05:39)
[2021-01-18 04:00] VITALS: BP 120/69
--- NOTE | 2021-01-18 04:30 | NUR ---
VITALS WERE TAKEN, PATIENT TEMP 101 F AXILLARY. PATIENT UNABLE TO FOLLOW COMMANDS AND HALF ASLEEP, WILL NOTIFY MD AND ASK FOR SUPPOSITORY TYLENOL
--- NOTE | 2021-01-18 04:35 | NUR ---
COOLING MEASURES APPLIED WHILE AWAITING FOR MD
[2021-01-18] MEDS: NACL 0.9% 1,000 ML IV SCH (04:55)
--- NOTE | 2021-01-18 05:00 | NUR ---
[place] AGAIN, AWAITING FOR HIS CALL
[2021-01-18 06:14] LABS: ANION GAP 10.8 (8-16); CARBON DIOXIDE 28.5 mmol/L (21-32); CREATININE 1.1 mg/dL (0.6-1.3); POTASSIUM 3.3 mmol/L (3.5-5.1)
[2021-01-18 06:27] LABS: BASOPHILS % (AUTO) 0.1 % (0.0-2.0); EOSINOPHILS % (AUTO) 0.1 % (0.0-4.0); HEMATOCRIT 36.1 % (36-52); HEMOGLOBIN 11.6 g/dL (12.0-18.0); LYMPHOCYTES # (AUTO) 1.5 K/uL (2.0-11.5); LYMPHOCYTES % (AUTO) 7.1 % (20.5-51.1); MEAN CORPUSCULAR HEMOGLOBIN 29 pg (27-31); MEAN CORPUSCULAR HGB CONC 32 g/dL (33-37); MEAN CORPUSCULAR VOLUME 90.9 fL (80-94); MONOCYTES # (AUTO) 0.5 K/uL (0.8-1.0); MONOCYTES % (AUTO) 2.4 % (1.7-9.3); NEUTROPHILS # (AUTO) 19.3 K/uL (1.8-7.7); NEUTROPHILS % (AUTO) 90.3 % (42.2-75.2); PLATELET COUNT (AUTO) 300 K/uL (140-450); RED BLOOD CELL COUNT(AUTO) 3.98 MIL/uL (4.20-6.10); WHITE BLOOD COUNT (AUTO) 21.3 K/uL (4.8-10.8)
[2021-01-18] MEDS: BLOOD GLUCOSE MONITORING 1 DEV DEV FS SCH ×4 (06:27→21:32)
[2021-01-18] MEDS: INSULIN LISPRO SLIDING SCALE 100 UNITS/ML VIAL SUBQ PRN ×4 (06:33→21:32)
[2021-01-18] MEDS ORDERED: ACETAMINOPHEN 650 MG SUPP RC PRN (06:35)
[2021-01-18] MEDS: NACL 0.45% 1,000 ML IV SCH ×2 (06:53→17:11)
--- NOTE | 2021-01-18 07:19 | NUR ---
ENDORSED PATIENT TO DAY SHIFT NURSE FOR CONTINUITY OF CARE
[2021-01-18] MEDS: ALBUTEROL SULFATE/IPRATROPIU 3 ML SOL IH SCH ×3 (07:27→20:28)
--- NOTE | 2021-01-18 07:40 | NUR ---
patient saturating well on 35% on bipap, informed rn that pt to be placed on nasal cannula for trial after medneb. patient tolerating nasal cannula at this time. bipap on standby at bedside.
[2021-01-18 08:00] VITALS: BP 159/69
--- NOTE | 2021-01-18 08:45 | NUR ---
PATIENT HAS BEEN SCREENED AND CATEGORIZED MODERATE NUTRITION RISK. PATIENT WILL BE SEEN WITHIN 3-5 DAYS OF ADMISSION. 01/18/21 01/22/[address]
[2021-01-18] MEDS: PANTOPRAZOLE 40 MG TABEC PO SCH (09:00)
--- NOTE | 2021-01-18 10:00 | NUR ---
ADMINISTERED SCHEDULED MEDICATIONS. PATIENT IS APHASIC. ABLE TO NOD YES OR NO. PATIENT'S IS VISITING AT THE WINDOW. ATTEMPTED TO FEED PATIENT BREAKFAST. PATIENT HAS AN APPETITE AND IS WILLING TO EAT BUT UNABLE TO SWALLOW ALL PUREED FOOD COMPLETELY. SAYS HE USUALLY IS ABLE TO EAT AND OPEN EYES BUT PATIENT NOT WILLING TO OPEN HIS EYES; HE IS STILL FOLLOWING COMMANDS AT THIS TIME. PATIENT REMAINS IN SEMI-FOWLERS POSITION. RESPIRATIONS EVEN AND UNLABORED ON 4L NC. ALL SAFETY PRECAUTIONS IN PLACE.
--- NOTE | 2021-01-18 10:23 | NUR ---
RECEIVED TORB FOR SWALLOW EVALUATION FROM DR. HILTON.
--- NOTE | 2021-01-18 10:55 | NUR ---
DC PLANNIN YRS OLD MALE PATIENT WAS ADMITTED FROM [facility] WITH A DX OF PNEUMONIA SEPSIS. PATIENT HAS A HX OF CVA WITH RSW APHASIA AND HTN. CXR SHOWED PNA. RAPID COVID TEST NEGATIVE PCR IS PENDING. ON BIPAP SATING 95%. WBC 21.3 NA+158 BLOOD GLUCOSE 484. ADMINISTERED IVF, IV ABX ZOSYN AND CONTINUED HOME MEDS. PER DR HILTON SPOKE WITH FAMILY AND MADE PT IS DNR. CONSULTED WITH PULMO. DC PLAN TO GO BACK TO [facility] WHEN STABLE. CM TO FOLLOW Addendum: 01/21/21 at 1243 by Mechelle Polo RN DC PLANNING: PER FAMILY REQUEST (DAUGHTER) SAMEER REQUESTED TO SEND HER DAD TO ANOTHER [facility], SIMONE PREFERED [facility] IN [place]. FAXED TO [facility] [phone] . CM TO FOLLOW Addendum: 01/21/21 at 1441 by Mechelle Polo RN DC PLANNING: PER FAMILY REQUEST PATIENT WILL BE GOING TO [facility] ROOM [facility] THE [address]DRESS [id number] [address] [facility] [id number]. # TO GIVE REPORT [phone] ARRANGED TRANSPORT WITH [employer] [facility] [phone] CONFIRMATION # [id number] NOTIFIED HARRIETT NGUYỄN AND PT'S DAUGHTER STARLA. CM TO FOLLOW Addendum: 01/22/21 at 0858 by Mechelle Polo RN DC PLANNING: PT WILL BE PICKED UP BETWEEN 10:30-11:00 AM BY [facility]. GOING TO [facility], ROOM 7A # TO GIVE REPORT [phone] NOTIFIED MICKY NGUYỄN.
[2021-01-18 12:00] VITALS: BP 152/80
[2021-01-18] MEDS: PIPERACILLIN/TAZOBACTAM 3.375 GM in DEXTROSE 5% 50 ML IV SCH ×2 (12:56→18:43)
--- NOTE | 2021-01-18 15:43 | NUR ---
SPEECH THERAPY AT BEDSIDE FOR SWALLOW EVALUATION ASSESSMENT. ST RECOMMENDS NPO.
--- NOTE | 2021-01-18 15:58 | NUR ---
PT WAS SEEN FOR DYSPHAGIA. PT WAS POCKETING AND HAD BREATHING PATTERN CHANGE AFTER INTAKE OF PO TRIALS. RECOMMENDATION NOTHING BY MOUTH
[2021-01-18 16:00] VITALS: BP 138/69
--- NOTE | 2021-01-18 19:30 | NUR ---
ENDORSED PATIENT TO HVAC SPECIALIST RN FOR CONTINUITY OF CARE. PATIENT IS STABLE.
[2021-01-19] MEDS: PIPERACILLIN/TAZOBACTAM 3.375 GM in DEXTROSE 5% 50 ML IV SCH ×4 (00:53→18:13)
[2021-01-19] MEDS: NACL 0.45% 1,000 ML IV SCH ×2 (02:35→07:04)
[2021-01-19 06:11] LABS: ANION GAP 15.9 (8-16); CARBON DIOXIDE 24.4 mmol/L (21-32); CREATININE 0.9 mg/dL (0.6-1.3); POTASSIUM 3.3 mmol/L (3.5-5.1)
[2021-01-19 06:25] LABS: BASOPHILS % (AUTO) 0.2 % (0.0-2.0); HEMOGLOBIN 11.5 g/dL (12.0-18.0); LYMPHOCYTES # (AUTO) 1.3 K/uL (2.0-11.5); LYMPHOCYTES % (AUTO) 11.7 % (20.5-51.1); MEAN CORPUSCULAR HEMOGLOBIN 29 pg (27-31); MEAN CORPUSCULAR HGB CONC 32 g/dL (33-37); MEAN CORPUSCULAR VOLUME 91.1 fL (80-94); MONOCYTES # (AUTO) 0.4 K/uL (0.8-1.0); MONOCYTES % (AUTO) 3.2 % (1.7-9.3); NEUTROPHILS # (AUTO) 9.5 K/uL (1.8-7.7); NEUTROPHILS % (AUTO) 84.9 % (42.2-75.2); PLATELET COUNT (AUTO) 259 K/uL (140-450); RED BLOOD CELL COUNT(AUTO) 3.95 MIL/uL (4.20-6.10); RED CELL DISTRIBUTION WIDTH 14.7 % (11.6-13.7); WHITE BLOOD COUNT (AUTO) 11.2 K/uL (4.8-10.8)
--- NOTE | 2021-01-19 06:29 | NUR ---
Blood sugar for start of shift was 166. Later in shift pt's DTR called and re-assured. Also, pt spotted repeatedly grabbing at IV bag. Pole moved away from pt's reach.
[2021-01-19] MEDS: BLOOD GLUCOSE MONITORING 1 DEV DEV FS SCH ×4 (06:58→21:19)
[2021-01-19 07:08] LABS: T4 (THYROXINE) 7.3 ug/dL (4.5-12.0)
[2021-01-19] MEDS: ALBUTEROL SULFATE/IPRATROPIU 3 ML SOL IH SCH ×2 (07:39→12:38)
[2021-01-19 08:00] VITALS: BP 152/84
[2021-01-19] MEDS: PANTOPRAZOLE 40 MG TABEC PO SCH (09:00)
[2021-01-19 12:00] VITALS: BP 152/84
[2021-01-19] MEDS ORDERED: DEXT 5% / NACL 0.45% 1,000 ML IV SCH (12:50)
--- NOTE | 2021-01-19 13:25 | NUR ---
patient has been given trays of food. sounds more coarse bilat then previously. might require a swallow evaluation due to poss aspiration of food.
[2021-01-19] MEDS: DEXTROSE 5% 1,000 ML IV SCH (14:11)
--- NOTE | 2021-01-19 14:32 | NUR ---
PT WAS SEEN FOR DYSPHAGIA. PT WAS COUGHING FOR TRIALS OF APPLE SAUCE AND HONEY THICK LIQUID. RECOMMENDATION NOTHING BY MOUTH
[2021-01-19 16:00] VITALS: BP 145/78
[2021-01-19] MEDS: INSULIN LISPRO SLIDING SCALE 100 UNITS/ML VIAL SUBQ PRN ×2 (16:43→21:28)
[2021-01-19] MEDS: LORazepam 2 MG/ML VIAL IM/IVP PRN (16:47)
--- NOTE | 2021-01-19 19:45 | NUR ---
PATIENT RESTING IN BED, AAO x1, RESPIRATIONS EVEN AND UL ON 2LNC. D5 INFUSING TO LFA AT 50ML/HR PER ORDER, IV SITE WNL. PT REMAINS STABLE THROUGHOUT SHIFT. REPORT GIVEN TO PM NURSE FOR CONTINUITY OF CARE.
[2021-01-19 20:00] VITALS: BP 144/79
--- NOTE | 2021-01-19 20:26 | NUR ---
Assumed care. Alert and oriented to self. He does not respond verbally. We is making aimless moves with his arm. Does not take notice of one's presence. Left had was holding on IV tube lines. I am tolf that he did pull out his IV earlier. He presently has a 24 gauge. Will attempt to start a new line on him. Current IV fluids will continue to infuse after the infusion of antibiotic in done. F/C is in situ for urinary retention2/2 to BPH. Will continue to monitor.
--- NOTE | 2021-01-19 20:48 | NUR ---
Daughter Dr. Garcia has been given an update of her father's status. Will continue to monitor.
[2021-01-20] VITALS: BP 147/80
[2021-01-20] MEDS: PIPERACILLIN/TAZOBACTAM 3.375 GM in DEXTROSE 5% 50 ML IV SCH ×5 (00:33→23:58)
--- NOTE | 2021-01-20 01:26 | NUR ---
PT AWAKE LYING IN BED NO SIGNS OF RESPIRATORY DISTRESS SATING 97% WILL CONTINUE TO MONITOR.
[2021-01-20 04:00] VITALS: BP 149/77
--- NOTE | 2021-01-20 04:40 | NUR ---
PT AWAKE LYING IN BED NO SIGNS OF RESPIRATORY DISTRESS SATING 94% WILL CONTINUE TO MONITOR.
[2021-01-20 06:14] LABS: CARBON DIOXIDE 28.3 mmol/L (21-32); CREATININE 0.8 mg/dL (0.6-1.3); POTASSIUM 3.3 mmol/L (3.5-5.1)
[2021-01-20 06:20] LABS: BASOPHILS % (AUTO) 0.3 % (0.0-2.0); EOSINOPHILS % (AUTO) 0.3 % (0.0-4.0); HEMATOCRIT 37.1 % (36-52); HEMOGLOBIN 12.2 g/dL (12.0-18.0); LYMPHOCYTES # (AUTO) 1.9 K/uL (2.0-11.5); LYMPHOCYTES % (AUTO) 23.7 % (20.5-51.1); MEAN CORPUSCULAR HEMOGLOBIN 29 pg (27-31); MEAN CORPUSCULAR HGB CONC 33 g/dL (33-37); MEAN CORPUSCULAR VOLUME 89.7 fL (80-94); MONOCYTES # (AUTO) 0.4 K/uL (0.8-1.0); NEUTROPHILS # (AUTO) 5.7 K/uL (1.8-7.7); NEUTROPHILS % (AUTO) 70.7 % (42.2-75.2); PLATELET COUNT (AUTO) 255 K/uL (140-450); RED BLOOD CELL COUNT(AUTO) 4.14 MIL/uL (4.20-6.10); RED CELL DISTRIBUTION WIDTH 14.5 % (11.6-13.7)
[2021-01-20] MEDS: BLOOD GLUCOSE MONITORING 1 DEV DEV FS SCH ×4 (06:44→21:10)
[2021-01-20] MEDS: INSULIN LISPRO SLIDING SCALE 100 UNITS/ML VIAL SUBQ PRN ×4 (06:49→21:14)
[2021-01-20] MEDS: ALBUTEROL SULFATE/IPRATROPIU 3 ML SOL IH SCH ×3 (07:22→21:05)
--- NOTE | 2021-01-20 07:41 | NUR ---
A bed bath has been given. Had a formed stool x1. Care has been endorsed to Zane NGUYỄN.
--- NOTE | 2021-01-20 07:42 | NUR ---
RECEIVED REPORT FROM CUTTER OPERATOR HELPER NURSE FOR CONTINUITY OF CARE. PATIENT IS APHASIC AND AOX1. RESPIRATION EVEN UNLABORED ON RA. NO DISTRESS NOTED. SKIN IS WARM, DRY, AND INTACT. IV IS ON LFA 24 G INTACT AND PATENT. HAS HALEY HALEY CATH IN PLACE DRAINING BY GRAVITY. PLAN OF CARE DISCUSSED. ALL SAFETY MEASURES IN PLACE. ON CONTACT PRECAUTIONS FOR MDRO. BED IS AT LOW POSITION. CALL LIGHT WITHIN REACH. WILL CONTINUE TO MONITOR
[2021-01-20 08:00] VITALS: BP 155/80
[2021-01-20] MEDS: PANTOPRAZOLE 40 MG TABEC PO SCH (08:35)
--- NOTE | 2021-01-20 09:00 | NUR ---
SCHEDULED MEDS WERE NOT GIVEN. PT IS CURRENTLY NPO DUE TO FAILING SWALLOW EVAL TEST.
[2021-01-20] MEDS: DEXTROSE 5% 1,000 ML IV SCH (10:11)
--- NOTE | 2021-01-20 11:51 | NUR ---
BLOOD GLUCOSE CHECK WAS 205. ADMINISTERED 2 UNITS OF INSULIN SQ PER MD ORDERED.
[2021-01-20 12:00] VITALS: BP 111/72
[2021-01-20] MEDS ORDERED: TPN PER PHARMACY MC PRN (12:55)
--- NOTE | 2021-01-20 13:35 | NUR ---
DR. CARRILLO AT BEDSIDE DISCUSSING PLAN OF CARE WITH FAMILY AND PATIENT.
[2021-01-20] MEDS ORDERED: POTASSIUM CHLORIDE 40 MEQ, LIDOCAINE MPF 1% 25 MG in NACL 0.9% 250 ML IV PRN (14:00)
--- NOTE | 2021-01-20 15:45 | NUR ---
CHECKED ON PATIENT. PT IS STABLE. NO DISTRESS NOTED. WILL CONTINUE TO MONITOR.
[2021-01-20 16:00] VITALS: BP 121/77
--- NOTE | 2021-01-20 18:26 | NUR ---
BLOOD GLUCOSE CHECK WAS 188. ADMINISTERED 2 UNITS OF INSULIN SQ
--- NOTE | 2021-01-20 19:21 | NUR ---
ENDORSED TO SOOT BLOWER NURSE FOR CONTINUITY OF CARE. PT IS STABLE.
[2021-01-20 20:00] VITALS: BP 141/71
[2021-01-20] MEDS: LORazepam 2 MG/ML VIAL IM/IVP PRN (23:59)
[2021-01-21] VITALS (7 sets, daily range): BP systolic 107–136; BP diastolic 57–75
--- NOTE | 2021-01-21 00:34 | NUR ---
the pateint was admitted for pneumonia and sepsis. the pateint has hx of cva,htn,dm,hyperlipidemia. wbcs is getting low , k is 3.3. the patient was agitated, ativan was given ,vitals are stable.. the patient sleeps comfortable in his bed. comfort and sfaety measures are provided.
[2021-01-21] MEDS: DEXTROSE 5% 1,000 ML IV SCH (04:56)
[2021-01-21] MEDS: PIPERACILLIN/TAZOBACTAM 3.375 GM in DEXTROSE 5% 50 ML IV SCH ×4 (04:57→18:11)
[2021-01-21 06:27] LABS: ANION GAP 12.4 (8-16); CARBON DIOXIDE 29.1 mmol/L (21-32); CHOL/HDL RATIO 3.7 (1-4.5); CREATININE 0.8 mg/dL (0.6-1.3); MAGNESIUM 1.9 mg/dL (1.8-2.4); POTASSIUM 3.5 mmol/L (3.5-5.1)
[2021-01-21 06:28] LABS: BASOPHILS % (AUTO) 0.3 % (0.0-2.0); EOSINOPHILS % (AUTO) 0.6 % (0.0-4.0); HEMATOCRIT 33.7 % (36-52); HEMOGLOBIN 11.2 g/dL (12.0-18.0); LYMPHOCYTES # (AUTO) 1.9 K/uL (2.0-11.5); LYMPHOCYTES % (AUTO) 26.7 % (20.5-51.1); MEAN CORPUSCULAR HEMOGLOBIN 30 pg (27-31); MEAN CORPUSCULAR HGB CONC 33 g/dL (33-37); MEAN CORPUSCULAR VOLUME 89.4 fL (80-94); MONOCYTES # (AUTO) 0.5 K/uL (0.8-1.0); MONOCYTES % (AUTO) 6.4 % (1.7-9.3); NEUTROPHILS # (AUTO) 4.7 K/uL (1.8-7.7); PLATELET COUNT (AUTO) 311 K/uL (140-450); RED BLOOD CELL COUNT(AUTO) 3.77 MIL/uL (4.20-6.10); RED CELL DISTRIBUTION WIDTH 14.6 % (11.6-13.7); WHITE BLOOD COUNT (AUTO) 7.2 K/uL (4.8-10.8)
[2021-01-21] MEDS: BLOOD GLUCOSE MONITORING 1 DEV DEV FS SCH ×4 (06:44→21:29)
[2021-01-21] MEDS: INSULIN LISPRO SLIDING SCALE 100 UNITS/ML VIAL SUBQ PRN ×3 (06:47→21:32)
--- NOTE | 2021-01-21 07:28 | NUR ---
RECEIVED REPORT FROM PM SHIFT RN,PATIENT ALERT,CONFUSED, SLURRED UNCLEAR SPEECH.,RIGHT SIDE WEAKNESS,ON ROOM AIR, NO SOB OR RESP. DISTRESS NOTED PIV ACCESS ON LFA WITH IVF D5% @50ML/HR RUNNING,PLAN FOR TODAY IS SWALLOW EVAL. CURRENTLY PT. IS NPO. ALL SAFETY MEASURES IN PLACE,CALL LIGHT WITHIN REACH.. WILL FOLLOW UP WITH THE PLAN AND CONTINUE TO MONITOR THE PATIENT.
[2021-01-21] MEDS: ALBUTEROL SULFATE/IPRATROPIU 3 ML SOL IH SCH ×2 (08:03→18:55)
--- NOTE | 2021-01-21 08:36 | NUR ---
PT ORAL CARE PERFORMED, PT SUCTIONED. AT BEDSIDE. ALL SAFETY MEASURES IN PLACE
[2021-01-21] MEDS: PANTOPRAZOLE 40 MG TABEC PO SCH (09:00)
[2021-01-21] MEDS ORDERED: DEXTROSE 5% 1,000 ML IV SCH (09:05)
--- NOTE | 2021-01-21 10:01 | NUR ---
MD THOMSON AT BEDSIDE
--- NOTE | 2021-01-21 10:45 | NUR ---
MD CAPUTO AT BEDSIDE , PATIENT EXPLAINED PROCEDURE RISK AND BENEFITS , FAMILY AGREED CONSENT OBTAINED ALL SAFETY MEASURES IN PLACE.
--- NOTE | 2021-01-21 11:25 | NUR ---
KIRSTIN VANN VIA GURNEY FOR PROCEDURE .ALL SAFETY MEASURES ARE IN PLACE
[2021-01-21] MEDS ORDERED: PIPE1SOL IV (11:31)
[2021-01-21] MEDS ORDERED: DOCU-299 PO (11:31)
[2021-01-21] MEDS ORDERED: diphenhydrAMINE 50 MG/ML VIAL ONE (11:32)
[2021-01-21] MEDS ORDERED: MIDAZOLAM 5 MG/5 ML VIAL ONE (11:32)
[2021-01-21] MEDS ORDERED: fentaNYL citrate 0.05 MG/ML VIAL ONE (11:32)
--- NOTE | 2021-01-21 12:15 | NUR ---
PT ARRIVED. PT PLACED BACK ON IV FLUIDS. ALLL SAFETY MEASURES ARE IN PLACE.
[2021-01-21] MEDS ORDERED: fentaNYL citrate 0.05 MG/ML VIAL IVP ONE (12:40)
[2021-01-21] MEDS ORDERED: MIDAZOLAM 2 MG/2 ML VIAL IVP ONE (12:40)
--- NOTE | 2021-01-21 13:42 | NUR ---
TUBE FEEDINGS STARTED PER MD ORDER. PT EDUCATED AND VERBALIZED UNDERSTANDING ALL SAFETY MEASURES ARE IN PLACE.
--- NOTE | 2021-01-21 14:18 | NUR ---
PT CHNAGED AND REPOSITIONED. ONE LARGE SOFT BROWN BM AT THIS TIME , AT BEDSIDE. ALL SAFETY MEASURES ARE IN PLACE.
--- NOTE | 2021-01-21 17:14 | NUR ---
CONTINUE WITH G TUBE FEEDING.
--- NOTE | 2021-01-21 17:30 | NUR ---
PATIENT STABLE,ALERT .UNDERSTANDING,V/S STABLE. TUBE FEEDING TOLERATED WELL ,NO RESIDUAL NOTED. INCREASED 10 ML ORDER . WILL ENDORSE TO PM SHIFT RN TO FOLLOW ORDER TO INCREASE FEEDING 10 ML EVERY 4 HRS UNTILL GOAL IS 60ML/HR. . ALL SAFETY MEASURES APPLIED. CLOSELY MONITORED THE PATIENT.
[2021-01-21] MEDS: METOCLOPRAMIDE 10 MG/10 ML SYRP UDC GT SCH (18:04)
--- NOTE | 2021-01-21 19:11 | NUR ---
REPORT GIVEN TO PM GOPI TONG
--- NOTE | 2021-01-21 19:12 | NUR ---
RECEIVED REPORT FROM AM NURSE. PATIENT IS APHASIC. NO S/S OF RESPIRATORY DISTRESS. RESPIRATION EVEN UNLABORED. IVF INFUSING AT 50 ML ON THE LFA. TUBE FEEDING GLUCERNA 1.2 RUNNING AT 40 ML/HR WITH A GOAL OF 60 ML. ALL SAFETY PRECAUTIONS ARE IN PLACE. HALEY CATHETER IN PLACE. SKIN WARM AND DRY TO THE TOUCH. WILL CONTINUE TO MONITOR.
[2021-01-21] MEDS ORDERED: AMINO ACIDS 8.5% IV SCH (20:00)
[2021-01-21] MEDS ORDERED: HUMAN IV SCH (20:00)
[2021-01-21] MEDS ORDERED: INSULIN REGULAR IV SCH (20:00)
[2021-01-21] MEDS ORDERED: DEXTROSE 20% IV SCH (20:00)
--- NOTE | 2021-01-21 20:00 | NUR ---
TPN NOT ADMINISTERED, NO PICC LINE.
--- NOTE | 2021-01-21 21:32 | NUR ---
BLOOD GLUCOSE 267 INSULIN ADMINISTERED ORDERED PER SLIDING SCALE.
[2021-01-22] VITALS: BP 113/71
[2021-01-22] MEDS: PIPERACILLIN/TAZOBACTAM 3.375 GM in DEXTROSE 5% 50 ML IV SCH ×2 (00:01→05:55)
--- NOTE | 2021-01-22 00:01 | NUR ---
SCHEDULED ZOSYN IVPB GIVEN PER MD ORDERED
[2021-01-22 04:00] VITALS: BP 147/73
--- NOTE | 2021-01-22 04:45 | NUR ---
PATIENT IS KEPT CLEAN. DRY AND COMFORTABLE. ALL SAFETY MEASURES ARE IN PLACE.
--- NOTE | 2021-01-22 05:55 | NUR ---
ADMINISTERED ZOSYN ORDERED
[2021-01-22 06:10] LABS: ANION GAP 10.5 (8-16); BASOPHILS % (AUTO) 0.2 % (0.0-2.0); CREATININE 0.7 mg/dL (0.6-1.3); EOSINOPHILS % (AUTO) 0.6 % (0.0-4.0); HEMATOCRIT 32.9 % (36-52); LYMPHOCYTES # (AUTO) 1.4 K/uL (2.0-11.5); LYMPHOCYTES % (AUTO) 21.5 % (20.5-51.1); MEAN CORPUSCULAR HEMOGLOBIN 30 pg (27-31); MEAN CORPUSCULAR HGB CONC 34 g/dL (33-37); MEAN CORPUSCULAR VOLUME 88.4 fL (80-94); MONOCYTES # (AUTO) 0.3 K/uL (0.8-1.0); MONOCYTES % (AUTO) 5.2 % (1.7-9.3); NEUTROPHILS # (AUTO) 4.6 K/uL (1.8-7.7); NEUTROPHILS % (AUTO) 72.5 % (42.2-75.2); PLATELET COUNT (AUTO) 292 K/uL (140-450); POTASSIUM 3.5 mmol/L (3.5-5.1); RED BLOOD CELL COUNT(AUTO) 3.72 MIL/uL (4.20-6.10); WHITE BLOOD COUNT (AUTO) 6.3 K/uL (4.8-10.8)
[2021-01-22 06:29] LABS: MAGNESIUM 2.1 mg/dL (1.8-2.4); PHOSPHORUS 2.9 mg/dL (2.5-4.9)
[2021-01-22] MEDS: BLOOD GLUCOSE MONITORING 1 DEV DEV FS SCH (07:01)
--- NOTE | 2021-01-22 07:01 | NUR ---
BLOOD GLUCOSE 297 , HUMALOG 6 UNITS GIVEN ORDERED PER SLIDING SCALE.
[2021-01-22] MEDS: INSULIN LISPRO SLIDING SCALE 100 UNITS/ML VIAL SUBQ PRN (07:03)
--- NOTE | 2021-01-22 07:25 | NUR ---
RECEIVE REPORT FROM SHELLFISH BED WORKER NURSE FOR CONTINUITY OF CARE. PATIENT AWAKE. PATIENT APHASIC. NO ACUTE DISTRESS NOTED. PATIENT ON ROOM AIR. G-TUBE IN PLACE RUNNING FEEDING. CALL LIGHT WITHIN REACH. ALL SAFETY MEASURES IN PLACE. WILL CONTINUE TO MONITOR.
[2021-01-22] MEDS: ALBUTEROL SULFATE/IPRATROPIU 3 ML SOL IH SCH (07:51)
[2021-01-22 08:00] VITALS: BP 114/71
[2021-01-22] MEDS: METOCLOPRAMIDE 10 MG/10 ML SYRP UDC GT SCH (08:16)
[2021-01-22] MEDS: PANTOPRAZOLE 40 MG TABEC PO SCH (08:16)
--- NOTE | 2021-01-22 08:28 | NUR ---
PATIENT AWAKE. PATIENT NOT ABLE TO VERBALIZE UNDERSTANDING. SCHEDULED MEDICATION GIVEN. PATIENT HAD 5 ML RESIDUAL. CALL LIGHT WITHIN REACH. ALL SAFETY MEASURES IN PLACE. WILL CONTINUE TO MONITOR.
--- NOTE | 2021-01-22 10:10 | NUR ---
PATIENT AWAKE. PATIENT NOT ABLE TO VERBALIZE UNDERSTANDING. NO ACUTE DISTRESS NOTED. AT BEDSIDE. CALL LIGHT WITHIN REACH. ALL SAFETY MEASURES IN PLACE. WILL CONTINUE TO MONITOR.
--- NOTE | 2021-01-22 11:05 | NUR ---
PATIENT AWAKE. NO ACUTE DISTRESS NOTED. BP 109/71, HR 80, RR 18, TEMP 98, O2 SAT 94%. DISCHARGE DOCUMENTATION GIVEN. [facility] PATIENT NOT ABLE TO VERBALIZE UNDERSTANDING. AT BEDSIDE. ALL PERSONAL BELONGING SENT WITH PATIENT. WRISTBAND REMOVED. IV REMAIN IN PLACE. PATIENT TO CONTINUE ABX AT REHAB FACILITY. PATIENT TRANSPORTED BY AMBULANCE VIA GURNEY.
== END 2021-01-22 11:05 | DRG 871 ==
LOC: MED 16:32 → MTU 19:02 → MMU 20:20 → MTU 01-18 17:06
PROVIDERS: ADMIT Family Medicine; ATTEND Family Medicine
PROC: 5A09357 Assistance with Respiratory Ventilation, Less than 24 Consecutive Hours, Continuous Positive Airway Pressure (ICD-10-PCS; 2021-01-17)
PROC: 0BH17EZ Insertion of Endotracheal Airway into Trachea, Via Natural or Artificial Opening (ICD-10-PCS; 2021-01-17)
PROC: 5A1935Z Respiratory Ventilation, Less than 24 Consecutive Hours (ICD-10-PCS; 2021-01-17)
PROC: 0DH63UZ Insertion of Feeding Device into Stomach, Percutaneous Approach (ICD-10-PCS; principal; 2021-01-21 11:30)
DX: A41.9 Sepsis, unspecified organism (principal); E11.00 Type 2 diabetes mellitus with hyperosmolarity without nonketotic hyperglycemic-hyperosmolar coma (NKHHC); J69.0 Pneumonitis due to inhalation of food and vomit; J96.01 Acute respiratory failure with hypoxia; G93.41 Metabolic encephalopathy; E44.0 Moderate protein-calorie malnutrition; E87.0 Hyperosmolality and hypernatremia; N39.0 Urinary tract infection, site not specified; I69.351 Hemiplegia and hemiparesis following cerebral infarction affecting right dominant side; R13.11 Dysphagia, oral phase; D72.825 Bandemia; N40.0 Benign prostatic hyperplasia without lower urinary tract symptoms; E11.65 Type 2 diabetes mellitus with hyperglycemia; E78.5 Hyperlipidemia, unspecified; E83.41 Hypermagnesemia; E86.0 Dehydration; I10 Essential (primary) hypertension; F41.9 Anxiety disorder, unspecified; E87.5 Hyperkalemia; E87.8 Other disorders of electrolyte and fluid balance, not elsewhere classified; Z20.822 Contact with and (suspected) exposure to COVID-19; E11.40 Type 2 diabetes mellitus with diabetic neuropathy, unspecified; I69.320 Aphasia following cerebral infarction
CPT/HCPCS: 36415; 36600; 70450; 71045; 80048; 80053; 81001; 82150; 82553; 82803; 82948; 83036; 83605; 83690; 83735; 83880; 84100; 84436; 84439; 84443; 84479; 84484; 85025; 85610; 85730; 87040; 87081; 87086; 87420; 87804; 92526; 92610; 93005; 94640; 94660; 96365; 96368; 96372; 99285; J0456; J0696; J1200; J1815; J2001; J2060; J2250; J2543; J3010; J3480; J7030; J7060; J8597; Q0092; U0003